=== PATIENT | male | born 1995 | race American Indian/Alaskan Native ===

== ENCOUNTER 2017-08-21 02:18 | Emergency (ER) | payer BC ==
[2017-08-21 03:44] VITALS: BP 134/85
[2017-08-21] MEDS ORDERED: MOTRIN ONE (04:06)
[2017-08-21] MEDS ORDERED: MOTRIN PO ONE ×2 (04:06→06:35)
--- NOTE | 2017-08-21 05:01 | XRay Report ---
FINAL REPORT EXAM: XR ANKLE 3+V LT HISTORY: Left ankle swelling and pain. TECHNIQUE: Three radiographs of the left ankle were obtained. No prior studies are available for comparison. FINDINGS: There is no fracture or dislocation. The ankle mortise is intact. There is prominent lateral soft tissue swelling. No other discrete osseous abnormality is seen. IMPRESSION: No fracture or dislocation. Prominent lateral soft tissue swelling.
--- NOTE | 2017-08-21 05:53 | Emergency Department Report ---
ED Lower Extremity HPI - General Chief Complaint: Extremity Injury, Lower Stated Complaint: ANKLE PAIN Time Seen by Provider: 08/21/17 05:52 Source: patient, family Mode of arrival: Ambulatory Limitations: No Limitations - History of Present Illness Initial Comments: Patient here report that he twisted his left ankle playing basketball yesterday. Reports pain is 9/10 and throbbing.. Denies any numbness or tingling. Reports swelling. Reports that it difficult for him to walk because of pain. No medication taken. Patient came to the hospital with crutches that belongs to his brother. He denies any other injury aside from his left ankle. Pain is worse with movement palpation better with rest and MD Complaint: ankle injury (left ankle injury, pain and swelling) Onset/Timin -: days(s) Injury: Ankle: Left (pain and swelling from injury) Type of Injury: eversion Severity: moderate Severity scale (0 -10): 5 Improves With: rest Worsens With: weight bearing, movement, palpation Context: running, jumping Associated Symptoms: swelling, unable to bear weight. denies: snap/pop sensation, numbness, tingling Treatments Prior to Arrival: other (crutches) - Related Data Previous Rx's Medication Instructions Recorded Last Taken Type Ibuprofen [Motrin] 800 mg PO Q8HR PRN #15 tablet 08/21/17 Unknown Rx Allergies Allergy/AdvReac Type Severity Reaction Status Date / Time No Known Allergies Allergy Unverified 08/21/17 04:04 ED Review of Systems ROS: Stated complaint: ANKLE PAIN Other details as noted in HPI Comment: All other systems reviewed and negative Constitutional: no symptoms reported Respiratory: no symptoms reported Cardiovascular: denies: chest pain, palpitations, dyspnea on exertion, edema, syncope, paroxysmal nocturnal dyspnea Gastrointestinal: denies: nausea, vomiting Genitourinary: denies: dysuria, hematuria Musculoskeletal: joint swelling, arthralgia. denies: back pain, myalgia Skin: denies: rash Neurological: abnormal gait (left ankle due to pain and swelling from injury). denies: headache, weakness, numbness, paresthesias ED Past Medical Hx - Past Medical History Previous Medical History?: Yes Hx Asthma: Yes - Surgical History Past Surgical History?: No - Family History Family history: no significant - Social History Smoking Status: Never Smoker Substance Use Type: Marijuana - Medications Home Medications: Home Medications Medication Instructions Recorded Confirmed Last Taken Type Ibuprofen [Motrin] 800 mg PO Q8HR PRN #15 tablet 08/21/17 Unknown Rx ED Physical Exam - General Limitations: No Limitations General appearance: alert, in no apparent distress - Head Head exam: Present: atraumatic, normal inspection, other (normal exam) - Eye Eye exam: Present: normal appearance, PERRL, EOMI Pupils: Present: normal accommodation - ENT ENT exam: Present: normal exam, normal orophraynx, mucous membranes moist - Neck Neck exam: Present: normal inspection, full ROM, other (no C-spine tenderness). Absent: tenderness, lymphadenopathy - Respiratory Respiratory exam: Present: normal lung sounds bilaterally. Absent: respiratory distress, chest wall tenderness - Cardiovascular Cardiovascular Exam: Present: regular rate, normal rhythm, normal heart sounds - Extremities Exam Extremities exam: Present: tenderness (left ankle bimalleolar), normal capillary refill, joint swelling, other (patient with left ankle swelling, tenderness to palpate and unable to weight-bear. No clubbing or cyanosis. +2 pulses to all extremities. Patient with decrease movement to left ankle due to pain swelling on unable to weight-bear. No neurovascular compromise). Absent: normal inspection, full ROM (limited range of motion to left ankle), pedal edema , calf tenderness - Expanded Lower Extremity Exam Left Hip exam: Present: normal inspection, full ROM, pelvic stability. Absent: tenderness, swelling, abrasion, laceration, ecchymosis, deformity, crepidus, erythema, external rotation, internal rotation, shortening Upper Leg exam: Present: normal inspection, full ROM. Absent: tenderness, swelling, abrasion, laceration, ecchymosis, deformity, crepidus, dislocation, erythema Knee exam: Present: normal inspection, full ROM, full knee extension. Absent: tenderness, swelling, abrasion, laceration, ecchymosis, deformity, crepidus, dislocation, erythema, effusion, pain w/ pronation/supination, posterior draw sign, pain/laxity with valgus, pain/laxity with varus Lower Leg exam: Present: normal inspection, full ROM. Absent: tenderness, swelling, abrasion, laceration, ecchymosis, deformity, crepidus, dislocation, erythema, palpable cord, Julissa's sign Ankle exam: Present: tenderness (left inner and outer ankle), swelling ( bimalleolar). Absent: normal inspection, full ROM (left ankle painful with active range of motion. Pain with plantar flexion and dorsiflexion. Pain is located in her out her left ankle.), abrasion, laceration, ecchymosis, deformity , crepidus, dislocation, erythema Foot/Toe exam: Present: normal inspection, full ROM, swelling (Mild swelling left foot extending from ankle). Absent: tenderness, abrasion, laceration, ecchymosis, deformity, crepidus, dislocation, erythema, amputation, puncture wound, foreign body, calcaneal tenderness, tenderness at base of 5th metatarsal , nail avulsion, subungual hematoma Neuro vascular tendon exam: Present: no vascular compromise, motor deficit ( decrease movement to left ankle due to pain and swelling. Unable to weight-bear ), sensory deficit, significant pain with passive ROM of distal joint. Absent: pulse deficit, abnormal cap refill, tendon deficit, extremity cold to touch, pallor, abnormal 2-point discrimination, decreased fine/light touch, foot drop, peroneal nerve deficit Gait: Positive: antalgic, unable to bear weight - Back Exam Back exam: Present: normal inspection, full ROM. Absent: tenderness, CVA tenderness (R), CVA tenderness (L), muscle spasm, paraspinal tenderness, vertebral tenderness, rash noted - Neurological Exam Neurological exam: Present: alert, oriented X3, abnormal gait (abnormal gait due to pain and swelling right ankle.), reflexes normal - Psychiatric Psychiatric exam: Present: normal affect, normal mood - Skin Skin exam: Present: warm, dry, intact, normal color. Absent: rash ED Course Vital Signs 08/21/17 03:36 Temperature 97.5 F L Pulse Rate 76 Respiratory 16 Rate Blood Pressure 134/85 O2 Sat by Pulse 99 Oximetry - Reevaluation(s) Reevaluation #1: 08/21/17 06:24 Patient given Motrin 800 mg emergency room for pain. See procedure note for detail and splinted - Orthopedic Splinting/Casting Injury #1 Side: left Lower Extremity Injury Location: ankle Lower Extremity Immobilizer: stirrup splint Other Orthopedic Equipment: crutches Additional Comments: Patient with 2+ and bounding pedal pulses status post splint placed and able to move toes on both feet ED Lower Extremity MDM - Radiology Data Radiology results: report reviewed X-ray of left ankle reveal no fracture or dislocation but patient with soft tissue swelling. - Medical Decision Making ED course: Patient is status post left ankle injury after playing basketball. He reports swelling and pain. X-ray revealed no fracture dislocation with soft tissue swelling. I discussed x-ray result patient and treatment plan. He voiced understanding. Patient given Motrin 800 mg emergency room for left ankle pain. See procedure note for details on splinting. Rice therapy explained. Patient discharged home in stable condition with prescription for Motrin and to follow up with Dr. Craig on Thursday. Critical care attestation.: If time is entered above; I have spent that time in minutes in the direct care of this critically ill patient, excluding procedure time. ED Disposition Clinical Impression: Arthralgia of left ankle Sprain of left ankle Qualifiers: Encounter type: initial encounter Involved ligament of ankle: unspecified ligament Qualified Code(s): S93.402A - Sprain of unspecified ligament of left ankle, initial encounter Left ankle injury Qualifiers: Encounter type: initial encounter Qualified Code(s): S99.912A - Unspecified injury of left ankle, initial encounter Disposition: - TO HOME OR SELFCARE Is pt being admited?: No Does the pt Need Aspirin: No Condition: Stable Instructions: Ankle Sprain (ED), Ankle Stirrup Splint (ED), Arthralgia (ED), RICE Therapy (ED) Additional Instructions: Please refer to discharge instruction on Rice therapy. Take Motrin as prescribed for pain and swelling to right ankle Follow-up with Dr. Craig in 3 days. Prescriptions: Ibuprofen [Motrin] 800 mg PO Q8HR PRN #15 tablet PRN Reason: pain/swelling left ankle Referrals: PRIMARY MD NEO [Primary Care Provider] - 08/24/17 LEVI CRAIG MD [Staff Physician] - 08/24/17 [facility] [Outside] - 3-5 Days
== END 2017-08-21 06:49 | disposition home or self-care (01) ==
LOC: ED 02:18
DX: S93.402A Sprain of unspecified ligament of left ankle, initial encounter (principal); J45.909 Unspecified asthma, uncomplicated; F12.10 Cannabis abuse, uncomplicated; X58.XXXA Exposure to other specified factors, initial encounter; Y93.89 Activity, other specified; Y92.89 Other specified places as the place of occurrence of the external cause; Y99.8 Other external cause status

== ENCOUNTER 2019-09-15 17:06 | Emergency (ER) | payer SELFPAY ==
--- NOTE | 2019-09-15 18:21 | Ultrasound Report ---
ULTRASOUND SCROTUM INDICATION / CLINICAL INFORMATION: testicular pain. COMPARISON: None available. FINDINGS -- RIGHT TESTIS: Size = 4.1 x 2.3 x 3.2 cm. - Appearance: No significant abnormality. - Cyst or Mass: None. - Color Doppler Flow: No significant abnormality. EPIDIDYMIS: Right epididymis is enlarged with hypervascular flow. HYDROCELE: None. VARICOCELE: None demonstrated. FINDINGS -- LEFT TESTIS: Size = 4.2 x 2.2 x 2.7 cm. - Appearance: No significant abnormality. - Cyst or Mass: None. - Color Doppler Flow: No significant abnormality. EPIDIDYMIS: No significant abnormality. HYDROCELE: None. VARICOCELE: None demonstrated. ADDITIONAL FINDINGS: None. IMPRESSION: 1. Findings suggesting right-sided epididymitis. Signer Name: Josue Aiken MD Signed: 09/15/2019 6:16 PM Workstation Name: [id number]
--- NOTE | 2019-09-15 18:46 | Emergency Department Report ---
ED Male HPI - General Chief complaint: Urogenital-Male Stated complaint: RT SIDE TESTICLE PAIN Time Seen by Provider: 09/15/19 18:29 Source: patient Mode of arrival: Ambulatory Limitations: No Limitations - History of Present Illness Initial comments: This is a 24-year-old male with no prior medical history presents the ED complaining of right testicular pain for the past 2 days. Patient denies any trauma to the testicular area, any lesions or rash to the penis. Patient denies fever, abdominal pain ,penile discharge, dysuria or any other symptoms. MD Complaint: testicle pain, testicle swelling - Related Data Previous Rx's Medication Instructions Recorded Last Taken Type Ibuprofen [Motrin] 800 mg PO Q8HR PRN #15 tablet 08/21/17 Unknown Rx Allergies Allergy/AdvReac Type Severity Reaction Status Date / Time No Known Allergies Allergy Verified 09/15/19 17:07 ED Review of Systems ROS: Stated complaint: RT SIDE TESTICLE PAIN Other details as noted in HPI Comment: All other systems reviewed and negative ED Past Medical Hx - Past Medical History Hx Asthma: Yes - Surgical History Past Surgical History?: No - Social History Smoking Status: Never Smoker Substance Use Type: Marijuana - Medications Home Medications: Home Medications Medication Instructions Recorded Confirmed Last Taken Type Ibuprofen [Motrin] 800 mg PO Q8HR PRN #15 tablet 08/21/17 Unknown Rx ED Physical Exam - General Limitations: No Limitations General appearance: alert, in no apparent distress - Head Head exam: Present: atraumatic, normocephalic - Eye Eye exam: Present: normal appearance - ENT ENT exam: Present: mucous membranes moist - Neck Neck exam: Present: normal inspection - Respiratory Respiratory exam: Present: normal lung sounds bilaterally. Absent: respiratory distress - Cardiovascular Cardiovascular Exam: Present: regular rate, normal rhythm. Absent: systolic murmur, diastolic murmur, rubs, gallop - GI/Abdominal GI/Abdominal exam: Present: soft, normal bowel sounds - Rectal Rectal exam: Present: deferred - exam: Present: normal inspection, testicular tenderness (mild right tendernes of scrotum), scrotal swelling. Absent: urethral discharge External exam: Present: normal external exam. Absent: erythema, swelling, lesions - Extremities Exam Extremities exam: Present: normal inspection - Back Exam Back exam: Present: normal inspection - Neurological Exam Neurological exam: Present: alert, oriented X3 - Psychiatric Psychiatric exam: Present: normal affect, normal mood - Skin Skin exam: Present: warm, dry, intact, normal color. Absent: rash ED Course Vital Signs 09/15/19 09/15/19 17:07 19:32 Temperature 98.3 F Pulse Rate 107 H 91 H Respiratory 20 17 Rate Blood Pressure 119/78 Blood Pressure 119/72 [Right] O2 Sat by Pulse 98 99 Oximetry ED Medical Decision Making - Radiology Data Radiology results: report reviewed, image reviewed ULTRASOUND SCROTUM INDICATION / CLINICAL INFORMATION: testicular pain. COMPARISON: None available. FINDINGS -- RIGHT TESTIS: Size = 4.1 x 2.3 x 3.2 cm. - Appearance: No significant abnormality. - Cyst or Mass: None. - Color Doppler Flow: No significant abnormality. EPIDIDYMIS: Right epididymis is enlarged with hypervascular flow. HYDROCELE: None. VARICOCELE: None demonstrated. FINDINGS -- LEFT TESTIS: Size = 4.2 x 2.2 x 2.7 cm. - Appearance: No significant abnormality. - Cyst or Mass: None. - Color Doppler Flow: No significant abnormality. EPIDIDYMIS: No significant abnormality. HYDROCELE: None. VARICOCELE: None demonstrated. ADDITIONAL FINDINGS: None. IMPRESSION: 1. Findings suggesting right-sided epididymitis. Signer Name: Josue Aiken MD Signed: 09/15/2019 6:16 PM Workstation Name: [id number] Transcribed By: HAKEEM Dictated By: Josue Aiken MD Electronically Authenticated By: Josue Aiken MD Signed Date/Time: 09/15/191815 - Medical Decision Making 24-year-old male presents with acute epididymitis most likely secondary to STD exposure. ED course: Scrotal ultrasound suggested epididymitis Patient received 250 mg of Rocephin, azithromycin 1 g in the ED Discussed with patient possible STD due to exposure. Discussed with patient findings and treatment in the ED Discussed prophylaxis treatment patient is to abstain from sex 7-10 days as treatment. Discussed patient partner knowledge and treatment. Discussed the follow-up with the health department for further STD testing. Patient's alert and oriented times 3. Vital signs are normal patient is in no acute discharge. Patient will be discharged home with instructions. Critical care attestation.: If time is entered above; I have spent that time in minutes in the direct care of this critically ill patient, excluding procedure time. ED Disposition Clinical Impression: Epididymitis, Testicular pain, right Disposition: [id number] TO HOME OR SELFCARE Is pt being admited?: No Does the pt Need Aspirin: No Condition: Stable Instructions: Epididymitis (ED) Additional Instructions: Make sure to follow up with the primary care physician as discussed. Make sure you go and get tested If you have any worsening symptoms or develop new symptoms please return to ED immediately. Referrals: [facility] [Outside] - 3-5 Days [facility] [Outside] - 3-[address] [facility] [Outside] - 3-5 Days Forms: STI Treatment and Prevention Time of Disposition: 18:55
[2019-09-15] MEDS ORDERED: AZITHROMYCIN 250 MG TAB PO ONE (18:49)
[2019-09-15] MEDS ORDERED: LIDOCAINE-MPF (1%) 10 MG/1 ML VIAL 5 ML INFILTRATI ONE (18:49)
[2019-09-15 19:33] VITALS: BP 119/72
== END 2019-09-15 19:49 | disposition home or self-care (01) ==
LOC: ED 17:06
DX: N45.1 Epididymitis (principal); J45.909 Unspecified asthma, uncomplicated; F12.10 Cannabis abuse, uncomplicated
CPT/HCPCS: 93975; 96372; 99283; J0696